=== PATIENT | female | born 1950 | race Caucasian/White ===

== ENCOUNTER 2017-04-11 16:49 | Emergency (ER) | payer OTHER, MEDICARE ==
[~2017-04-11] VITALS: Ht 170.2 cm; Wt 52.6 kg
--- NOTE | 2017-04-11 17:35 | ED GI/GU/ABDOMINAL COMPLAINT ---
History of Present Illness General Chief Complaint: Nausea, Vomiting, Diarrhea Stated Complaint: N/V Source: patient Exam Limitations: no limitations Vital Signs & Intake/Output Vital Signs & Intake/Output Vital Signs Date Time Temp Pulse Resp B/P B/P Pulse O2 O2 Flow FiO2 Mean Ox Delivery Rate 04/11 2049 97.6 82 18 146/62 98 Room Air 04/11 1755 98 Room Air 04/11 1656 97.0 97 20 148/87 98 Room Air ED Intake and Output 04/12 0000 04/11 1200 Intake Total 1000 Output Total Balance 1000 Intake, IV 1000 Patient 116 lb Weight Weight Estimated Measurement Method Allergies Coded Allergies: No Known Allergies (04/11/17) Reconcile Medications Metoclopramide HCl (Reglan) 10 MG TABLET 1 TAB PO 4 TIMES/DAY PRN NAUSEA Ondansetron HCl (Zofran) 4 MG TABLET 1 TAB PO Q6-8P PRN NAUSEA Sulfamethoxazole/Trimethoprim (Bactrim Ds Tablet) 800 MG-160 MG TABLET 1 TAB PO BID UTI Triage Note: PT TO ED C/O N/V X 2 DAYS. DENIES DIARRHEA. PT STATES SHE IS UNABLE TO EAT. Triage Nurses Notes Reviewed? yes ? N Is pt currently ? No Duration: constant Timing: recent history Quality/Severity: cramping Severity Numbers: 6 Location: generalized abdomen Radiation: no radiation Activities at Onset: none HPI: Patient is a 66-year-old female with a past medical history of rheumatoid arthritis were patient does not take any current medications where she states that 2 weeks ago she changed from smoking normal cigarettes to E cigarettes and since she has been complaining of intermittent nausea however on Tuesday at [facility] she had dental extractions performed however no antibiotics or pain medications were administered patient states that the dental swelling and pain has completely resolved however not 4 days patient has been complaining of persistent nausea and vomiting and due to multiple episodes of nonbloody nonbilious emesis and patient unable to tolerate anything in by mouth she has had general abdominal discomfort. Last bowel movement was today no blood no melena noted. Denies any recent antibiotic use. Patient has chills and fevers. Denies any shortness of breath cough chest pain arm pain and back pain vaginal bleeding vaginal discharge (ANGE SIEGEL) Past History Travel History Traveled to [place] past 21 day No Medical History Any Pertinent Medical History? see below for history Musculoskeletal: rheumatoid arthritis Surgical History Surgical History: , hysterectomy Psychosocial History What is your primary language Hungarian Tobacco Use: Current Not Daily Daily Tobacco Use Amount/Type: => 5 Cigarettes daily ETOH Use: denies use Illicit Drug Use: denies illicit drug use Family History Hx Contributory? No (ANGE SIEGEL) Review of Systems Review of Systems Constitutional: Reports: see HPI. EENTM: Reports: no symptoms. Respiratory: Reports: no symptoms. Cardiovascular: Reports: no symptoms. GI: Reports: see HPI. Genitourinary: Reports: no symptoms. Musculoskeletal: Reports: no symptoms. Skin: Reports: no symptoms. Neurological/Psychological: Reports: no symptoms. Hematologic/Endocrine: Reports: no symptoms. Immunologic/Allergic: Reports: no symptoms. All Other Systems: Reviewed and Negative (ANGE SIEGEL) Physical Exam Physical Exam General Appearance: no apparent distress Gastrointestinal: normal bowel sounds, soft, GENERALIZED ABDOMINAL POINT TENDERNESS NOTED Comments: Well-developed well-nourished person in no acute distress HEENT: Normal EENT exam, Neck: Supple, no lymphadenopathy, normal range of motion without pain or tenderness Back: Nontender, no CVA tenderness. Cardiovascular: Regular rate and rhythms no murmurs rubs or gallops, normal JVP Respiratory: Chest nontender. No respiratory distress.breath sounds clear to auscultation bilaterally Extremity: No edema, no calf tenderness to palpation, normal and equal pulses. Neuro: Alert oriented x3, motor sensory normal, Skin: No appreciable rash on exposed skin, skin is warm and dry. Psych: Mood and affect is normal, memory and judgment is normal. Core Measures ACS in differential dx? No Severe Sepsis Present: No Septic Shock Present: No (ANGE SIEGEL) Progress Differential Diagnosis: AAA, AMI, appendicitis, biliary colic, bowel obstruction , colon cancer, cholecystitis, diverticulitis, endometritis, esophageal varices, gastritis, hepatitis, hernia, hemorrhoids, ischemic bowel, inflamm bowel dis, kidney stone, pancreatitis, PID/cervicitis, peptic ulcer, PUD/GERD, perforated viscous, SBO, UTI/pyelo Plan of Care: Orders Procedure Date/time Status Add-on Test (ER Only) 04/11 193 Active CULTURE,URINE 04/11 192 Active URINALYSIS 04/11 190 Complete Add-on Test (ER Only) 04/11 1752 Active LIPASE 04/11 1746 Complete AMYLASE 04/11 1746 Complete LACTIC ACID 04/11 1745 Complete COMPREHENSIVE METABOLIC PANEL 04/11 1745 Complete CBC WITHOUT DIFFERENTIAL 04/11 1745 Complete Laboratory Tests 04/11/172044: Lactic Acid Cancelled 04/11/171919: Urine Color STRAW, Urine Clarity CLEAR, Urine pH 7.0, Ur Specific [place] 1.010, Urine Protein NEG, Urine Ketones NEG, Urine Nitrite NEG, Urine Bilirubin NEG, Urine Urobilinogen 0.2, Ur Leukocyte Esterase SMALL H, Ur Microscopic SEDIMENT EXAMINED, Urine RBC 1-3, Urine WBC 3-5 H, Ur Epithelial Cells RARE, Urine Bacteria MANY H, Urine Hemoglobin SMALL H, Urine Glucose NEG 04/11/171745: Anion Gap 13, Estimated GFR > 60, BUN/Creatinine Ratio 20.0, Glucose 106 H, Lactic Acid 1.0, Calcium 9.8, Total Bilirubin 0.6, AST 24, ALT 34, Alkaline Phosphatase 74, Total Protein 8.4 H, Albumin 4.4, Globulin 4.0, Albumin/ Globulin Ratio 1.1, Amylase 61, Lipase 71, CBC w Diff NO MAN DIFF REQ, RBC 5.12, MCV 83.2, MCH 27.3, RDW 13.7, MPV 8.3, Gran % 72.8, Lymphocytes % 18.9 L, Monocytes % 7.5, Eosinophils % 0.4, Basophils % 0.4, Absolute Granulocytes 7.2 H, Absolute Lymphocytes 1.9, Absolute Monocytes 0.7 H, Absolute Eosinophils 0, Absolute Basophils 0, PUBS MCHC 32.8 L Microbiology 04/11 1920 URINE ROUT: Urine Culture - RECD Patient currently resting comfortable at bedside patient declines pain medications when offered 04/11/2017 7:02:26 PM after evaluation of patient she states that prior to the CT scan she had complete resolution of nausea however the CT scan with IV contrast was administered which made patient's nausea worse Reglan will be administered. CT scan was reviewed with patient for concerns of right adnexal mass in which I strongly advised patient to follow up and establish a WEB COMMUNICATIONS SPECIALIST Dr. LYNN was referred. Patient also was given a copy of [facility] practice to establish a primary care doctor in which patient states that she has not seen a primary care doctor in many years. Patient will be treated for concerns of urinary tract infection. Patient also was strongly advised to follow up and establish Dr. Brink for gastroenterology for concerns of presenting complaints of nausea vomiting and the ileitis noted on CT scan for further evaluation. Patient was also given water and could tolerate this and had no exacerbation of symptoms patient states that prior to discharge she had complete resolution of her symptoms and feels significantly improved. Upon discharge patient looks well no apparent distress and will comply with discharge instructions and had no questions. Discussed disposition plan with Dr. Arriaga who agrees (PK BILLY,ANGE) Diagnostic Imaging: Viewed by Me: CT Scan. Radiology Impression: SEE COMMENTS Initial ED EKG: normal axis Comments: PATIENT: JOSH LOPEZ PRESENT AGE: 66 PATIENT ACCOUNT NO: [id number] : 49 LOCATION: [facility] ORDERING PHYSICIAN: ANGE BILLY SERVICE DATE: 04/11/17 EXAM TYPE: CAT - CT ABD & PELVIS W IV CONTRAST EXAMINATION: CT ABDOMEN AND PELVIS WITH CONTRAST CLINICAL INFORMATION: Nausea and vomiting. Abdominal pain for 4 days. COMPARISON: No relevant prior studies are available for comparison. TECHNIQUE: Multidetector volumetric imaging was performed of the abdomen and pelvis before and after the IV administration of 95 mL of Optiray 320 intravenous contrast. Sagittal and coronal reformatted images were obtained on the technologist's workstation. DLP: 250.11 mGy-cm. FINDINGS: LUNG BASES: The visualized lung bases are unremarkable. LIVER, GALLBLADDER, AND BILIARY TREE: The liver is normal in size, shape, and attenuation. No focal hepatic lesion or biliary ductal dilatation is present. The gallbladder is unremarkable with no evidence of radiopaque gallstones, gallbladder wall thickening, or obvious pericholecystic inflammatory changes. PANCREAS: Unremarkable. SPLEEN: Unremarkable. ADRENAL GLANDS: Unremarkable. KIDNEYS AND URETERS: The kidneys are normal in size, shape, and attenuation. No hydronephrosis, hydroureter, or calculi seen. No perinephric stranding. BLADDER: Unremarkable. GASTROINTESTINAL TRACT: No small or large bowel obstruction. Multiple fluid-filled small bowel loops are seen within the pelvis with mild associated free fluid. These findings could represent ileitis in the appropriate clinical setting. The appendix is not identified. ABDOMINAL WALL: No significant hernia is appreciated. LYMPH NODES: There is no significant lymphadenopathy. VASCULAR: There is no abdominal aortic dilatation. Atherosclerotic calcifications are seen within the abdominal aorta and its branch vessels. The IVC is unremarkable. PELVIC VISCERA: The uterus is not identified. The right adnexa appears enlarged and cystic measuring up to 3.5 cm in greatest dimension. There are small associated calcifications. There is trace free fluid in the pelvis. SOLUTIONS ARCHITECT CONSULTANT ultrasound is recommended to help further evaluate if clinically indicated. OSSEOUS STRUCTURES: No lytic or blastic osseous lesion. Moderate left hip degenerative changes. IMPRESSION: 1. Enlarged, cystic-appearing right adnexa with small associated calcifications. Trace free fluid in the pelvis. SOLUTIONS ARCHITECT CONSULTANT ultrasound is recommended to help further evaluate if clinically indicated. 2. Multiple fluid-filled small bowel loops within the pelvis with mild associated free fluid. These findings could represent ileitis in the appropriate clinical setting. The appendix is not identified. 3. No hydronephrosis or nephrolithiasis. DICTATED BY: RONALD CABRERA MD DATE/TIME DICTATED:04/11/171903 CLOTHING DESIGNER:JULITO DATE/TIME TRANSCRIBED:04/11/171903 CONFIDENTIAL, DO NOT COPY WITHOUT APPROPRIATE AUTHORIZATION. <Electronically signed in Other Vendor System> SIGNED BY: RONALD CABRERA MD 1921 (ANGE SIEGEL) Departure Departure Disposition: HOME OR SELF CARE Condition: Stable Clinical Impression Primary Impression: Nausea and vomiting Secondary Impressions: Adnexal mass, UTI (urinary tract infection) Referrals: CHANG LYNN MD PATIENT HAS NO PRIMARY CARE DR (PCP/Family) YOLANDA MERCADO,DILMA Phelan Additional Instructions: As discussed begin a 24-hour clear liquid and bland diet to rest her bowels. Begin the prescription of Reglan and/OR Zofran for nausea. Begin the prescription of Bactrim for your urinary tract infection. Tomorrow please follow up and establish [facility] practice for a primary care doctor, OB/ SOLUTIONS ARCHITECT CONSULTANT Dr. LYNN and director religious education Dr. Brink for further evaluation of your presenting complaints to the emergency room. If symptoms worsen return to emergency room. Prescription is waiting at [facility] pharmacy Departure Forms: Customer Survey General Discharge Information Prescriptions: Current Visit Scripts Sulfamethoxazole/Trimethoprim (Bactrim Ds Tablet) 1 TAB PO BID #14 TAB Metoclopramide HCl (Reglan) 1 TAB PO 4 TIMES/DAY PRN NAUSEA #15 TAB Ondansetron HCl (Zofran) 1 TAB PO Q6-8P PRN NAUSEA #15 TAB (ANGE SIEGEL) PA/SUCTION WORKER Co-Sign Statement Statement: ED Attending supervision documentation- [] I saw and evaluated the patient. I have also reviewed all the pertinent lab results and diagnostic results. I agree with the findings and the plan of care as documented in the PA's/SUCTION WORKER's documentation. [x] I have reviewed the ED Record and agree with the PA's/SUCTION WORKER's documentation. [] Additions or exceptions (if any) to the PAs/SUCTION WORKER's note and plan are summarized below: [] (SAMANTHA MERCADO,RAFFY Varela)
[2017-04-11 17:53] LABS: ABSOLUTE BASOPHIL COUNT 0 /CUMM (0.0-0.2); ABSOLUTE EOSINOPHIL COUNT 0 /CUMM (0.0-0.7); ABSOLUTE GRANULOCYTE CT 7.2 /CUMM (1.4-6.5); ABSOLUTE LYMPH COUNT 1.9 /CUMM (1.2-3.4); ABSOLUTE MONOCYTE COUNT 0.7 /CUMM (0.10-0.60); BASOPHIL % 0.4 % (0.0-2.0); EOSINOPHIL % 0.4 % (0-5); GRANULOCYTE % 72.8 % (42.2-75.2); HEMATOCRIT 42.6 % (37-47); MEAN CORPUSCULAR HGB 27.3 PG (27.0-31.0); MEAN CORPUSCULAR HGB CONC 32.8 G/DL (33.0-37.0); MEAN CORPUSCULAR VOLUME 83.2 FL (81.0-99.0); MEAN PLATELET VOLUME 8.3 FL (7.4-10.4); PLATELET COUNT 322 /CUMM (130-400); RBC DISTRIBUTION WIDTH 13.7 % (11.5-14.5); RED BLOOD CELL CT 5.12 /CUMM (4.20-5.40); WHITE BLOOD CELL COUNT 9.9 /CUMM (4.8-10.8)
--- NOTE | 2017-04-11 19:22 | CT SCAN REPORT ---
EXAMINATION: CT ABDOMEN AND PELVIS WITH CONTRAST CLINICAL INFORMATION: Nausea and vomiting. Abdominal pain for 4 days. COMPARISON: No relevant prior studies are available for comparison. TECHNIQUE: Multidetector volumetric imaging was performed of the abdomen and pelvis before and after the IV administration of 95 mL of Optiray 320 intravenous contrast. Sagittal and coronal reformatted images were obtained on the technologist's workstation. DLP: 250.11 mGy-cm. FINDINGS: LUNG BASES: The visualized lung bases are unremarkable. LIVER, GALLBLADDER, AND BILIARY TREE: The liver is normal in size, shape, and attenuation. No focal hepatic lesion or biliary ductal dilatation is present. The gallbladder is unremarkable with no evidence of radiopaque gallstones, gallbladder wall thickening, or obvious pericholecystic inflammatory changes. PANCREAS: Unremarkable. SPLEEN: Unremarkable. ADRENAL GLANDS: Unremarkable. KIDNEYS AND URETERS: The kidneys are normal in size, shape, and attenuation. No hydronephrosis, hydroureter, or calculi seen. No perinephric stranding. BLADDER: Unremarkable. GASTROINTESTINAL TRACT: No small or large bowel obstruction. Multiple fluid-filled small bowel loops are seen within the pelvis with mild associated free fluid. These findings could represent ileitis in the appropriate clinical setting. The appendix is not identified. ABDOMINAL WALL: No significant hernia is appreciated. LYMPH NODES: There is no significant lymphadenopathy. VASCULAR: There is no abdominal aortic dilatation. Atherosclerotic calcifications are seen within the abdominal aorta and its branch vessels. The IVC is unremarkable. PELVIC VISCERA: The uterus is not identified. The right adnexa appears enlarged and cystic measuring up to 3.5 cm in greatest dimension. There are small associated calcifications. There is trace free fluid in the pelvis. VEHICLE SERVICE ATTENDANT ultrasound is recommended to help further evaluate if clinically indicated. OSSEOUS STRUCTURES: No lytic or blastic osseous lesion. Moderate left hip degenerative changes. IMPRESSION: 1. Enlarged, cystic-appearing right adnexa with small associated calcifications. Trace free fluid in the pelvis. VEHICLE SERVICE ATTENDANT ultrasound is recommended to help further evaluate if clinically indicated. 2. Multiple fluid-filled small bowel loops within the pelvis with mild associated free fluid. These findings could represent ileitis in the appropriate clinical setting. The appendix is not identified. 3. No hydronephrosis or nephrolithiasis.
[2017-04-11] MEDS ORDERED: REGLAN10 M1 PO (20:07)
[2017-04-11] MEDS ORDERED: BACTRIM DS TAB1 EACH PO (20:07)
[2017-04-11] MEDS ORDERED: ZOFRAN4 M2 PO (20:07)
[2017-04-11 20:49] VITALS: BP 146/62
== END 2017-04-11 20:51 ==
LOC: ERH 16:49
PROVIDERS: Physician Assistant
DX: N85.8 Other specified noninflammatory disorders of uterus (principal); N39.0 Urinary tract infection, site not specified
CPT/HCPCS: 74177; 81001; 87086; 96361; 96374; 96375; J2405